=== PATIENT | female | born 2000 | race Two or more races ===

== ENCOUNTER 2024-12-30 19:58 | Emergency (ER) | payer OTHER ==
[~2024-12-30] VITALS: Ht 154.9 cm; Wt 62.6 kg
[2024-12-30] MEDS ORDERED: KETOROLAC TROMETHAMINE 60 MG VIAL IM ONE (20:45)
[2024-12-30 20:54] LABS: BASO % 0.8 % (0.1-1.2); EOS # 0.12 (0.04-0.54); EOS % 1.0 % (0.7-7.0); LYMPH # 2.71 (1.18-3.74); LYMPH % 22.7 % (19.3-53.1); MEAN PLATELET VOLUME 9.20 fl (9.4-12.4); MONO # 0.71 (0.24-0.82); MONO % 5.9 % (4.7-12.5); NEUT # 8.28 (1.56-6.13); NEUT % 69.3 % (34.0-71.1); RED CELL DISTRIBUTION WIDTH 13.3 % (11.6-14.4)
[2024-12-30 21:22] LABS: ALT/SGPT 33 U/L (12-78); AST/SGOT 22 U/L (15-37); BILIRUBIN TOTAL 0.85 mg/dL (0.3-1.2); BUN CREA RATIO 20 (7.0-25.0); CREATININE SERUM 0.71 mg/dL (0.55-1.02); GFR 102.94; GLOBULINA 3.9 G/DL (2.4-3.5); GLUCOSE FASTING 94 mg/dL (65-100); OSMOLALITY SERUM 280 MOSM/KG (275-295)
[2024-12-30 21:22] LABS: URINE APPEARANCE Clear; URINE BILIRRUBIN Negative (NEGATIVE); URINE BLOOD Negative; URINE COLOR Yellow; URINE GLUCOSE Negative (NEGATIVE); URINE KETONE Negative (NEGATIVE); URINE LEUKOCYTE Negative; URINE NITRATE Negative; URINE PROTEIN Negative (NEGATIVE); URINE UROBILINOGEN 0.2 E.U./dl
[2024-12-30 21:23] LABS: URINE BACTERIA 151.0 uL (0.0-1933); URINE EPITHELIAL CELLS 4.9 uL (0.0-38.8); URINE RBC 5.5 uL (0.0-20.8); URINE WBC 3.2 uL (0.0-23.2)
[2024-12-30 21:28] LABS: HCG QUANTITATIVE < 1 mUI/mL (1-3)
[2024-12-30 21:42] LABS: URINE CAST 0.00 uL (0.0-1.40)
[2024-12-30] MEDS ORDERED: NORFLEX100MG PO (22:16)
== END 2024-12-30 22:31 | disposition home or self-care (01) ==
LOC: ER 20:42
PROVIDERS: General Practice
DX: R10.2 Pelvic and perineal pain (principal); N83.291 Other ovarian cyst, right side

== ENCOUNTER 2025-03-25 15:12 | Emergency (ER) | payer OTHER ==
[~2025-03-25] VITALS: Ht 154.9 cm; Wt 68.0 kg
[~2025-03-25 15:12] MED LIST: NORFLEX100MG PO
[2025-03-25] MEDS ORDERED: ACETAMINOPHEN 500 MG GEL..CAP PO ONE ×2 (17:00→17:17)
[2025-03-25] MEDS ORDERED: 0.9 % SODIUM CHLORIDE 1,000 ML IV ONE (17:00)
[2025-03-25 17:44] LABS: BASO % 0.9 % (0.1-1.2); EOS # 0.26 (0.04-0.54); EOS % 2.4 % (0.7-7.0); LYMPH # 3.11 (1.18-3.74); LYMPH % 29.2 % (19.3-53.1); MEAN PLATELET VOLUME 9.40 fl (9.4-12.4); MONO # 0.66 (0.24-0.82); MONO % 6.2 % (4.7-12.5); NEUT # 6.47 (1.56-6.13); NEUT % 60.9 % (34.0-71.1); RED CELL DISTRIBUTION WIDTH 12.8 % (11.6-14.4)
[2025-03-25 18:14] LABS: ALT/SGPT 18.0 U/L (12-78); AST/SGOT 15.0 U/L (15-37); BILIRUBIN TOTAL 0.59 mg/dL (0.3-1.2); BUN CREA RATIO 17.0 (7.0-25.0); CREATININE SERUM 0.81 mg/dL (0.55-1.02); GFR 87.62; GLOBULINA 4.1 G/DL (2.4-3.5); GLUCOSE FASTING 113.0 mg/dL (65-100); OSMOLALITY SERUM 284.0 MOSM/KG (275-295)
[2025-03-25 18:55] LABS: URINE APPEARANCE Clear; URINE BILIRRUBIN Negative (NEGATIVE); URINE BLOOD Negative; URINE COLOR Dark Yellow; URINE GLUCOSE Negative (NEGATIVE); URINE KETONE 15 (NEGATIVE); URINE LEUKOCYTE Trace; URINE NITRATE Positive; URINE PROTEIN Negative (NEGATIVE); URINE UROBILINOGEN 1.0 E.U./dl
[2025-03-25 18:56] LABS: URINE BACTERIA 44.3 uL (0.0-1933); URINE EPITHELIAL CELLS 3.0 uL (0.0-38.8); URINE RBC 8.0 uL (0.0-20.8); URINE WBC 3.5 uL (0.0-23.2)
[2025-03-25 18:58] LABS: URINE CAST 0.00 uL (0.0-1.40)
[2025-03-25] MEDS ORDERED: BACTRIM DS TAB1 EACH PO (20:51)
[2025-03-25] MEDS ORDERED: CEFTRIAXONE SODIUM 1,000 MG VIAL IV ONE (21:00)
[2025-03-25] MEDS ORDERED: KETOROLAC TROMETHAMINE 30 MG VIAL IV ONE (21:00)
[2025-03-25] MEDS ORDERED: KETOROLAC TROMETHAMINE 30 MG VIAL ONE (21:01)
[2025-03-25] MEDS ORDERED: CEFTRIAXONE SODIUM 1,000 MG VIAL ONE (21:02)
== END 2025-03-25 21:58 ==
LOC: ER 15:13
PROVIDERS: General Practice
DX: N39.0 Urinary tract infection, site not specified (principal); R10.9 Unspecified abdominal pain; R30.0 Dysuria; R10.A2 Flank pain, left side; K59.00 Constipation, unspecified; N83.292 Other ovarian cyst, left side